=== PATIENT | male | born 1940 | race Caucasian/White ===

== ENCOUNTER 2016-10-10 15:54 | Emergency (ER) | payer MEDICARE, OTHER ==
--- NOTE | ~2016-10-10 | ER ---
PATIENT'S NAME: [facility] AGE: 76 Y [address] ROOM: [place] [id number] LOCATION: [facility] ADMIT DATE: 10/10/2016 ER/Outpatient Report DISCHARGE DATE: 10/10/2016 FAMILY PHYSICIAN: Wesley Matthews MD ATTENDING PHYSICIAN: Bowen Thakkar Time of Evaluation: 1600 hours. HISTORY OF PRESENT ILLNESS: The patient is a 76-year-old male. Said early this morning about 3 o'clock, he was awoke with what he describes as a sharp stabbing pain in his left anterior chest. The pain only lasted a few seconds. The patient then throughout the day has had some intermittent chest pain, which he describes as an electrical shock, usually just lasts a second or two and disappears. Pain is not brought on by any cough or deep breath. He denies any fever or chills. The patient did have a cardiac cath done about [address] Bragg. It did show some multi-vessel obstruction in his coronaries; however, the obstructions did not require any stenting. The patient is quite active, exercises regularly, and he has noticed no chest pain with his exercise program. ALLERGIES: NONE. HOME MEDICATIONS: Reviewed. 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 FAMILY HISTORY: Quite strong for coronary artery disease. SOCIAL HISTORY: Nonsmoker. He has may be one alcohol drink per day. Exercises on a treadmill regularly. REVIEW OF SYSTEMS: GENERAL: Today, no fevers or chills. HEENT: No recent headaches, visual changes, sore throat. RESPIRATORY: Denies any cough, wheezing, shortness of breath. CARDIOVASCULAR: Includes very intermittent sharp stabbing pain in his left chest. PATIENT'S NAME: [facility] AGE: 76 Y [address] ROOM: [place] [id number] LOCATION: [facility] ADMIT DATE: 10/10/2016 ER/Outpatient Report DISCHARGE DATE: 10/10/2016 FAMILY PHYSICIAN: Wesley Matthews MD ATTENDING PHYSICIAN: Bowen Thakkar GASTROINTESTINAL: No nausea, vomiting, weight loss. GENITOURINARY: Negative. MUSCULOSKELETAL: Neuropathy involving his lower extremities but denies any calf tenderness. OBJECTIVE FINDINGS: VITAL SIGNS: Blood pressure 155/75, his temperature is 97.9, pulse 53, his respiratory rate is 16, his O2 saturations 95%. GENERAL APPEARANCE: A white male. He is alert and oriented. HEENT: Head: Normocephalic. Eyes: PERRLA. No icterus. NOSE: Airways patent. Mouth: Tongue midline. Buccal membranes moist. NECK: No presence of adenopathy or jugular venous distention. LUNGS: Peripherally sounded clear. HEART: Rhythm appeared regular. No murmurs or gallop noted. Chest wall, there is no tenderness or crepitus palpated. ABDOMEN: Soft, nontender. EXTREMITIES: No pedal edema. No calf tenderness. LABORATORY DATA AND X-RAYS: CBC: White count was 6000, hemoglobin 15.1. His PTT was 37, pro-time 12.1, INR 1.15. His CPK 155, CK-MB 1.6, troponin was less than 0.40. Magnesium 2.1. CMS: Calcium was slightly low at 8.3, otherwise normal. D-dimer was less than 0.19. Chest x-ray, heart size appeared normal. There was no consolidation or pneumonitis present. EKG, sinus bradycardia. The patient is on a beta emily. Otherwise, no acute ST changes. EKG and lab work was reviewed by Dr. yBrd. ASSESSMENT: 1. Intermittent chest pain. 2. History of coronary artery disease. 3. Hyperlipidemia. 4. History of reflux. 5. History of neuropathy. PLAN: The patient was advised to follow up with Dr. Watson tomorrow. Otherwise, avoid any strenuous exercise. The patient verbalized understanding of our findings and recommendations and agreed. JIMENA DURANT FOR BOWEN THAKKAR DO PATIENT'S NAME: [facility] AGE: 76 Y [address] ROOM: [place] [id number] LOCATION: ED ADMIT DATE: 10/10/2016 ER/Outpatient Report DISCHARGE DATE: 10/10/2016 FAMILY PHYSICIAN: Wesley Matthews MD ATTENDING PHYSICIAN: Bowen Thakkar/lindal /[id number] d: 10/11/16 0145 t: 10/15/16 1212, OUTPATIENT REPORT
[~2016-10-10 15:54] MED LIST: ASPIR 8181 MG PO; CALCIUM600 MG PO; CENTRUM COMPLE1 EACH PO; CLARITIN10 M3 PO; FISH OIL1000 MG PO; LIPITOR80 MG PO; LYRICA75 MG PO; NITROSTAT0.4 MG SL; OCEAN NASAL) (A44 ML NOSE; PAIN RELIEF EX500 MG PO; PRADAXA150 MG PO; PRILOSEC20 M1 PO; RANEXA1000 MG PO
[2016-10-10 16:26] LABS: BASOPHIL % 0.3 %; EOSINOPHIL # 0.2 K/uL (0.0-0.5); EOSINOPHIL % 2.5 %; HEMATOCRIT 43.7 % (37.0-53.0); HEMOGLOBIN 15.1 g/dL (11.0-16.0); IMMATURE GRANULOCYTE % 0.3 %; LYMPHOCYTE % 33.2 %; MCH 32.5 pg (27.0-34.0); MCHC 34.6 gm/dL (32.0-36.5); MONOCYTE # 0.6 K/uL (0.0-1.0); MONOCYTE % 10.7 %; MPV 9.5 fl (9.4-12.4); NEUTROPHIL # (ANC) 3.2 K/uL (1.4-9.0); NRBC % 0 /100WBC (0-0.00); PLATELET COUNT 199 K/uL (150-450); RBC 4.65 M/uL (3.50-5.50); RDW-CV 12.4 % (11.9-14.6)
[2016-10-10 16:37] LABS: INR - (THERAPEUTIC) 1.15 (0.92-1.07); PROTIME 12.1 SECONDS (9.8-11.4); PTT 37 SECONDS (25-32)
[2016-10-10 16:46] LABS: ALBUMIN 3.8 gm/dL (3.5-5.0); ALK PHOS 53 IU/L (33-138); ALT 28 IU/L (12-78); AST 21 IU/L (10-40); BLOOD UREA NITROGEN 18 mg/dL (6-24); CALCIUM 8.3 mg/dL (8.5-10.5); CHLORIDE 110 mMol/L (96-110); CO2 23 mMol/L (22-32); CPK 175 IU/L (35-332); CREATININE 1.2 mg/dL (0.6-1.3); ESTIMATED GFR (MDRD EQUATION) 59; MAGNESIUM 2.1 mg/dL (1.8-2.6); SODIUM 141 mMol/L (135-145); TOTAL BILIRUBIN 0.5 mg/dL (0.0-1.5); TOTAL PROTEIN 6.8 g/dL (6.0-8.4)
[2016-10-10 18:39] LABS: CPK 155 IU/L (35-332)
== END 2016-10-10 19:15 | disposition disaster alternative care site (69) ==
LOC: GMED 15:54
PROVIDERS: Physician Assistant Medical
DX: R07.89 Other chest pain (principal); E78.5 Hyperlipidemia, unspecified; K21.9 Gastro-esophageal reflux disease without esophagitis; Z86.73 Personal history of transient ischemic attack (TIA), and cerebral infarction without residual deficits; Z95.828 Presence of other vascular implants and grafts; Z86.69 Personal history of other diseases of the nervous system and sense organs; Z79.899 Other long term (current) drug therapy